=== PATIENT | female | born 2000 | race Caucasian/White ===

== ENCOUNTER 2023-09-04 01:44 | Emergency (ER) | payer MEDICAID, OTHER ==
[~2023-09-04] VITALS: Ht 162.6 cm; Wt 70.0 kg
[2023-09-04 02:02] VITALS: O2SAT 97
[2023-09-04 03:47] LABS: BASOPHILS % 0.4 % (0.0-2.0); EOSINOPHILS % 1.2 % (0.0-5.0); HEMATOCRIT. 38.6 % (36.0-48.0); HEMOGLOBIN. 13.2 g/dL (12.0-16.0); LYMPHOCYTES % 38.5 % (20.0-50.0); MEAN CORPUSCULAR HEMOGLOBIN 31.2 pg (28.0-32.0); MEAN CORPUSCULAR HGB CONC 34.2 g/dL (31.0-37.0); MEAN CORPUSCULAR VOLUME 91.2 fL (81.0-99.0); MONOCYTES % 6.8 % (2.0-8.0); NEUTROPHILS % 53.1 % (40.0-76.0); PLATELET 291 x1000/uL (130-400); RED BLOOD CELL COUNT 4.23 mill/uL (4.2-5.4); RED CELL DISTRIBUTION WIDTH 12.9 % (11.6-14.6); WHITE BLOOD COUNT 7.5 x1000/uL (4.5-11.0)
[2023-09-04 03:58] LABS: CARBON DIOXIDE 26 mEq/L (21-32); CHLORIDE 107 mEq/L (98-107); POTASSIUM 3.9 mEq/L (3.5-5.1); SODIUM 140 mEq/L (136-145)
[2023-09-04 03:59] LABS: CALCIUM 9.7 mg/dL (8.7-10.4)
[2023-09-04 04:03] LABS: CREATININE 0.9 mg/dL (0.6-1.0)
[2023-09-04 04:04] LABS: GLUCOSE 96 mg/dL (70-105); UREA NITROGEN BLOOD 7 mg/dL (9-23)
[2023-09-04 04:05] LABS: *AMPHETAMINES SCREEN URINE NEGATIVE (NEGATIVE); *BARBITURATES SCREEN URINE NEGATIVE (NEGATIVE); *BENZODIAZEPINES SCREEN URINE NEGATIVE (NEGATIVE); *COCAINE SCREEN URINE NEGATIVE (NEGATIVE); ACETAMINOPHEN < 2 ug/mL (10-30); ETHANOL BLOOD 109 mg/dL (<10); METHADONE URINE SCREEN NEGATIVE (NEGATIVE)
[2023-09-04 04:06] LABS: CANNABINOID URINE SCREEN PRESUMPTIVE POSITIVE (NEGATIVE); ECSTASY MDMA SCREEN URINE NEGATIVE (NEGATIVE); OPIATES URINE SCREEN NEGATIVE (NEGATIVE); PHENCYCLIDINE URINE SCREEN NEGATIVE (NEGATIVE)
[2023-09-04 04:27] LABS: HCG SCREEN POSITIVE
[2023-09-04] MEDS: METOCLOPRAMIDE HCL 10MG TABLET PO ONE (18:24)
[2023-09-05 20:23] VITALS: BP 122/82; PULSE 80; RESP 14; TEMP 98.2
== END 2023-09-05 20:20 ==
LOC: ER 01:44 → EDBEDREQ 12:22 → EDBEDREQTM 12:22 → CANBEDREQ 09-05 06:54 → ER 09-05 20:20
DX: T51.0X1A Toxic effect of ethanol, accidental (unintentional), initial encounter (principal); Z20.822 Contact with and (suspected) exposure to COVID-19; X58.XXXA Exposure to other specified factors, initial encounter
CPT/HCPCS: 80305; 80048; 80307; 80329; 80320; 84703; 84702 ×2; 85025; 36415 ×2; 76801; 76817; 93005; 99285; 87426; J8597; G0480